=== PATIENT | male | born 1985 | race Caucasian/White ===

== ENCOUNTER 2019-02-07 07:43 | Day surgery (SDC) | payer OTHER ==
[2019-02-07] MEDS ORDERED: LIDOCAINE 4% SOLUTION 50 ML BTL (09:48)
[2019-02-07] MEDS ORDERED: MIDAZOLAM 1 MG/ML 2 ML INJ ×3 (10:45→10:46)
[2019-02-07] MEDS ORDERED: FENTAnyl 50 MCG/ML VIAL ×2 (10:46)
== END 2019-02-07 12:39 | disposition home or self-care (01) ==
LOC: GIL 07:43
DX: R19.5 Other fecal abnormalities (principal); K29.50 Unspecified chronic gastritis without bleeding; K64.4 Residual hemorrhoidal skin tags; K20.8 Other esophagitis
CPT/HCPCS: 43239; 88305; 88312; 88313